=== PATIENT | female | born 1940 | race Hispanic/Latino ===

== ENCOUNTER 2017-12-13 14:31 | Observation (INO) | payer MEDICARE ==
[2017-12-13 15:23] LABS: #Eosinphils 0.1 thou/uL (0.0-0.7); #Monocytes 0.5 thou/uL (0.11-0.59); #Neutrophils 8.7 thou/uL (1.40-6.50); %Basophils 0.4 % (0.0-1.0); %Eosinophils 0.7 % (0.0-10.0); %Lymphocytes 9.6 % (21.0-51.0); %Monocytes 5.2 % (0.0-10.0); %Neutrophils 84.1 % (42.0-75.0); Hemoglobin 10.8 g/dL (12.0-16.0); Mean Corpuscular HGB CONC 32.4 g/dL (32.0-36.0); Mean Corpuscular Hemoglobin 32.3 pg (27.0-31.0); Mean Corpuscular Volume 99.7 fL (78.0-98.0); Mean Platelet Volume 9.2 fL (7.4-10.4); Platelet Count 88 thou/uL (130-400); RBC Distribution Width 13.4 % (11.5-14.5); Red Blood Cell (RBC) Count 3.34 mill/uL (4.20-5.40); White Blood Cell (WBC) Count 10.3 thou/uL (4.8-10.8)
--- NOTE | 2017-12-13 15:32 | RAD ---
CHEST ONE VIEW: History: Cough. Comparison: None. FINDINGS: Heart size is enlarged. Mild pulmonary venous congestion. No pneumothorax. No acute osseous abnormality. IMPRESSION: 1. Cardiomegaly and mild pulmonary venous congestion. 2. Findings suggesting old left sided rib fracture. POS: [facility]
[2017-12-13 15:34] LABS: Burr Cells SLIGHT = 2-5 cells (100X) (0-1/hpf); MDiff Complete? YES; Ovalocytes SLIGHT = 2-5 cells (100X) (0-1/hpf); PLT Morphology Comment Appears Decreased; Tear Drops SLIGHT = 2-5 cells (100X) (0-1/hpf)
[2017-12-13 15:38] LABS: ALT (SGPT) 77 U/L (8-55); AST (SGOT) 78 U/L (5-34); Albumin 3.8 g/dL (3.4-4.8); Alkaline Phosphatase 182 U/L (40-150); Anion Gap 18 mmol/L (10-20); BUN (Urea Nitrogen) 46 mg/dL (9.8-20.1); CK (CPK) 186 U/L (29-168); Calc. Creatinine Clearance 0 mL/min (70-130); Calcium 7.8 mg/dL (7.8-10.44); Carbon Dioxide 25 mmol/L (23-31); Chloride 96 mmol/L (98-107); Estimated GFR-MDRD 6; Glucose 118 mg/dL (83-110); Lipase 42 U/L (8-78); Magnesium 1.9 mg/dL (1.6-2.6); Phosphorus 3.4 mg/dL (2.3-4.7); Potassium 3.9 mmol/L (3.5-5.1); Protein, Total 6.8 g/dL (6.0-8.3); Sodium 135 mmol/L (136-145)
[2017-12-13 15:38] LABS: CKMB 3.1 ng/mL (0-6.6); Troponin I 0.246 ng/mL (< 0.028)
[2017-12-13] MEDS ORDERED: Nitroglycerin 2% Ointment 1 INCH/1 GM Packet ONE (16:24)
[2017-12-13] MEDS ORDERED: Ondansetron HCl/PF 4 MG/2 ML Vial IVP PRN (18:31)
[2017-12-13] MEDS ORDERED: Ondansetron ODT 4 MG TAB SL PRN (18:31)
[2017-12-13 18:56] LABS: Troponin I 0.242 ng/mL (< 0.028)
[2017-12-13] MEDS ORDERED: hydrALAZINE 20 MG/ML VIAL SLOW IVP PRN (21:44)
[2017-12-13] MEDS ORDERED: cloNIDine 0.1 MG TAB PO PRN (21:45)
[2017-12-13] MEDS ORDERED: Labetalol HCl 100 MG/20 ML VIAL SLOW IVP PRN (21:45)
[2017-12-13 21:47] LABS: Troponin I 0.221 ng/mL (< 0.028)
--- NOTE | 2017-12-13 23:30 | CT ---
CT ABDOMEN WITHOUT CONTRAST PELVIC CT WITHOUT CONTRAST 12/13/17 HISTORY: Vomiting. Cough. Shortness of breath. Pain. COMPARISON: None. TECHNIQUE: CT abdomen and pelvis are performed without contrast. Coronal reformatted images are submitted for in terpretation. FINDINGS: This examination is on the anomalies list and is being interpreted at 10:53 p.m. There is evidence of diffuse anasarca/edema. Pockets incompletely well defined fluid are noted in the anterior abdominal wall, along the midline measuring 5.0 x 2.3 cm. Additional fluid is noted along t he left breast, incompletely evaluated. The heart is enlarged. There is a small right and a trace lef t side pleural effusion. Adjacent consolidation may be due to pneumonia or atelectasis. Small amount of pericardial fluid is noted. The visualized aorta demonstrates atherosclerosis. No evidence of aneu rysm. Gallbladder is unremarkable. Limited evaluation of the solid organs by the lack of IV contrast. There is a hypodensity involving t he left hepatic lobe, measuring 2.1 x 1.7 cm with an attenuation coefficient of negative 2 Hounsfield units suggesting a cyst. There is perihepatic and perisplenic fluid. Grossly, the solid organs are u nremarkable. There is atrophy of both kidneys. No definite obstructive uropathy. There is no mesenteric mass, lymphadenopathy or free air. There is free fluid involving both pericoli c gutters and patchy fluid in the lower abdomen. Limited evaluation of the alimentary canal due to lack of oral contrast. No definite small bowel obst ruction. Ileocecal junction is normal. Appendix is difficult to appreciate. No obvious inflammation o f the cecal apex. There is diverticulosis in the sigmoid colon. No obvious diverticulitis. Evaluation of the colonic mucosa is limited. PELVIC CT: Urinary bladder is decompressed. There is free fluid in the pelvis. No mass, lymphadenopathy or free air. The pelvic free fluid is slightly complex. No lytic or blastic lesions in the osseous structures. IMPRESSION: 1. Cardiomegaly. 2. Free fluid in the abdomen and pelvis. Anasarca and pockets of fluid in the soft tissues as de scribed above. Findings may be secondary to congestive heart failure/volume overload. Other etiologie s cannot be excluded. 3. No evidence of a high grade bowel obstruction. 4. Diverticulosis. No definite diverticulitis. Colonoscopy if clinically warranted. POS: [facility]
[2017-12-14] MEDS ORDERED: Nitroglycerin 0.4 MG TAB (25 Tab Bottle) PO PRN (02:11)
[2017-12-14] MEDS ORDERED: Calcium Carbonate 500 MG ChewTAB PO PRN (02:12)
[2017-12-14] MEDS ORDERED: Ondansetron ODT 4 MG TAB PO PRN (02:12)
[2017-12-14] MEDS ORDERED: Ondansetron HCl/PF 4 MG/2 ML Vial IVP PRN (02:12)
[2017-12-14] MEDS ORDERED: Senokot 8.6 MG TAB PO PRN (02:12)
[2017-12-14 05:02] LABS: INR-International Normal Ratio 1.3; PTT 65.6 SEC (22.9-36.1)
[2017-12-14 05:03] LABS: #Eosinphils 0.1 thou/uL (0.0-0.7); #Lymphocytes 0.6 thou/uL (1.20-3.40); #Monocytes 0.5 thou/uL (0.11-0.59); #Neutrophils 5.3 thou/uL (1.40-6.50); %Basophils 0.2 % (0.0-1.0); %Eosinophils 2.1 % (0.0-10.0); %Lymphocytes 9.7 % (21.0-51.0); %Monocytes 7.9 % (0.0-10.0); %Neutrophils 80.1 % (42.0-75.0); Hemoglobin 10.3 g/dL (12.0-16.0); Mean Corpuscular HGB CONC 32.8 g/dL (32.0-36.0); Mean Corpuscular Hemoglobin 32.1 pg (27.0-31.0); Mean Platelet Volume 9.8 fL (7.4-10.4); Platelet Count 74 thou/uL (130-400); RBC Distribution Width 13.2 % (11.5-14.5); White Blood Cell (WBC) Count 6.6 thou/uL (4.8-10.8)
[2017-12-14 05:14] LABS: ALT (SGPT) 64 U/L (8-55); AST (SGOT) 57 U/L (5-34); Albumin 3.7 g/dL (3.4-4.8); Alkaline Phosphatase 170 U/L (40-150); Anion Gap 16 mmol/L (10-20); BUN (Urea Nitrogen) 51 mg/dL (9.8-20.1); BUN/Creatinine Ratio 7.22; Bilirubin, Direct 1.7 mg/dL (0.1-0.3); Bilirubin, Total 2.4 mg/dL (0.2-1.2); Calc. Creatinine Clearance 9 mL/min (70-130); Calcium 8.1 mg/dL (7.8-10.44); Carbon Dioxide 28 mmol/L (23-31); Chloride 94 mmol/L (98-107); Estimated GFR-MDRD 6; Glucose 114 mg/dL (83-110); Phosphorus 4.1 mg/dL (2.3-4.7); Potassium 4.1 mmol/L (3.5-5.1); Sodium 134 mmol/L (136-145)
[2017-12-14] MEDS: cloNIDine 0.3 MG TAB PO SCH ×2 (06:54→13:21)
[2017-12-14] MEDS: Calcium Acetate 667 MG CAP PO SCH ×2 (07:59→13:21)
--- NOTE | 2017-12-14 08:36 | ULT ---
GALLBLADDER ULTRASOUND: Date: 12/14/17 INDICATION: Abnormal liver function tests. FINDINGS: Images of the gallbladder show thickened wall and pericholecystic fluid. No gallstones identified. Te chnologist describes a negative Mahmood's sign. Common bile duct is mildly prominent, measured at 7.0 mm. The liver is mildly enlarged, measuring up to 22.0 cm. Small amount of free fluid is seen around the liver margin. The right kidney appears unremarkable. The pancreas is obscured. IMPRESSION: 1. Gallbladder wall is thickened and there is pericholecystic fluid identified by ultrasound. No def inite gallstones seen. 2. Mild ascites. 3. Common bile duct is upper normal caliber. POS: [facility]
[2017-12-14] MEDS ORDERED: Furosemide 20 MG TAB PO SCH (09:00)
[2017-12-14] MEDS ORDERED: NIFEdipine XL 30 MG TAB PO SCH (09:00)
[2017-12-14] MEDS ORDERED: Aspirin 81 mg Enteric Coated Tablet PO SCH (09:00)
[2017-12-14] MEDS ORDERED: Minoxidil 2.5 MG TAB PO SCH (09:00)
[2017-12-14] MEDS ORDERED: Carvedilol 6.25 MG TAB PO SCH (09:00)
--- NOTE | 2017-12-14 09:00 | HP ---
DATE OF ADMISSION: 12/13/2017 The patient was seen and examined on 12/13/2017. PRIMARY CARE PHYSICIAN: The patient is unable to recall the name of her PCP. PRIMARY LEAD PHP DEVELOPER: The patient is unable to recall. CHIEF COMPLAINT: Generalized pain with shortness of breath and nausea. Please note that the patient is a poor historian and not much information is available from the patie nt. The patient primarily speaks Hungarian. HISTORY OF PRESENT ILLNESS: The patient is a 77-year-old female with hypertension; hyperlipidemia; e nd-stage renal disease, on hemodialysis Sunday, Sunday, Sunday; COPD; presented to the emergency r o with above complaints. The patient is new to [facility]. She has never been her e before. Over the last three days, the patient has generalized pain along with some nausea and vomiting. She had some coughing along with shortness of breath as well. She reports subjective fever yesterday. S he underwent dialysis on the day of admission; however, she was unable to complete it because of the pain. She also had some chest pain radiating to her neck. Her chest pain was moderate in intensity without any aggravating or relieving factor. Her shortness of breath was worse on exertion. In the emergency room, initial vital signs showed temperature 98.9, respiration 19, pulse rate of 72 with blood pressure 175/75 with O2 saturation 88% on room air. O2 saturation improved with O2 supple mentation. Chest x-ray showed pulmonary vascular congestion. A CT scan of the abdomen and pelvis wi thout contrast showed free fluid in the abdomen and pelvis, which may be secondary to congestive hear t failure. She received aspirin and 1 inch nitropatch was placed. PAST MEDICAL HISTORY: 1. Hypertension 2. Hyperlipidemia. 3. End-stage renal disease, on hemodialysis Sunday, Sunday, Sunday. 4. Chronic obstructive pulmonary disease. 5. Anxiety and depression. 6. Osteoporosis. PAST SURGICAL HISTORY: 1. Dialysis access. 2. Bladder sling. 3. section. ALLERGIES: No known drug allergies. CURRENT HOME MEDICATIONS: Tylenol, Lipitor, Bumex, calcium acetate, carvedilol 12.5 b.i.d., clonidin e 0.3 mg 3 times a day, Lasix 20 mg daily, minoxidil 10 mg daily, Procardia-XL 30 mg daily, Zoloft 50 mg daily, temazepam 15 mg at bedtime. SOCIAL HISTORY: The patient currently lives at home with her family, makes her own decision with the help of her family. She is FULL CODE. No current use of smoking, alcohol or drug use. FAMILY HISTORY: Positive for heart disease. REVIEW OF SYSTEMS: The following complete review of systems was negative, unless otherwise mentioned in the HPI or below: Constitutional: Weight loss or gain, ability to conduct usual activities. Sk in: Rash, itching. Eyes: Double vision, pain. ENT/Mouth: Nose bleeding, neck stiffness, pain, te nderness. Cardiovascular: Palpitations, dyspnea on exertion, orthopnea. Respiratory: Shortness of breath, wheezing, cough, hemoptysis, fever or night sweats. Gastrointestinal: Poor appetite, abdom inal pain, heartburn, nausea, vomiting, constipation, or diarrhea. Genitourinary: Urgency, frequenc y, dysuria, nocturia. Musculoskeletal: Pain, swelling. Neurologic/Psychiatric: Anxiety, depressio n. Allergy/Immunologic: Skin rash, bleeding tendency. PHYSICAL EXAMINATION: VITAL SIGNS: As discussed above. GENERAL: A 77-year-old female, in no significant respiratory distress, able to complete short phrase s. HEENT: Head atraumatic, normocephalic. Sclerae are anicteric. Moist mucous membrane. No oral lesi on. NECK: Supple. No significant JVD elevation noted. HEART: S1, S2 present. Regular rate and rhythm. No rubs or gallops appreciated. LUNGS: Showed diminished air entry at bilateral bases with bibasilar rales. No significant rhonchi or wheezing noted. ABDOMEN: Soft. Bowel sounds present. EXTREMITIES: 1+ edema in bilateral lower extremities. No calf tenderness. Good thrill over the lef t arm dialysis access. SKIN: Warm and dry. NEUROLOGIC: Grossly nonfocal, moves all four extremities. PSYCHIATRY: Alert, awake, and oriented x3. LABORATORY AND X-RAY FINDINGS: CBC showed WBC 10.3 with hemoglobin 10.8, platelet of 88. Chemistrie s showed sodium 135, potassium 3.9, chloride 96, bicarbonate 25, BUN 46, creatinine 6.38. Troponin o f 0.246. Total bilirubin 3.0, AST 78, ALT 77, alkaline phosphatase 182. Chest x-ray by my review sh owed pulmonary vascular congestion with old left-sided rib fracture. EKG by my review showed sinus r hythm without significant ST-T wave changes. IMPRESSION: 1. Acute hypoxic respiratory failure secondary to volume overload, rule out congestive heart failure . 2. End-stage renal disease on hemodialysis. 3. Chronic anemia, probably secondary to renal insufficiency. 4. Obesity with a BMI of 34.8. 5. Abnormal liver function tests of unclear etiology. Possibilities include passive hepatic congest ion versus nonalcoholic steatohepatitis. 6. Elevated troponins, probably secondary to volume overload. 7. Hyponatremia. 8. Thrombocytopenia of unclear etiology. 9. Questionable chronic liver disease. 10. Hypertension. 11. Hyperlipidemia. 12. Chronic obstructive pulmonary disease. 13. Anxiety and depression. 14. Osteoporosis. PLAN: The patient will be monitored in the telemetry unit. Echocardiogram will be obtained. Due to abnormal liver function tests, right upper quadrant ultrasound will be done as well. There was some questionable hypodensity on the left hepatic lobe on the CT. We will consult Nephrology for dialysi s. We will keep her on fluid restriction. We will resume selected home medications. We will monito r platelet count. We will avoid heparin due to low platelets. We will add nebulizer treatment as ne eded. Plan of care was discussed with the patient in detail. She stated understanding.
[2017-12-14 12:08] VITALS: TEMP 97.8
--- NOTE | 2017-12-14 12:21 | CON ---
DATE OF CONSULTATION: 12/14/2017 HISTORY OF PRESENT ILLNESS: Ms. Manzano is a 77-year-old female from [facility] and curre ntly visiting [place]. Please note this patient has ESRD on maintenance hemodialysis. During dialys is yesterday she complained of nonspecific abdominal discomfort. She was sent to the ER for further evaluation. She is now evaluated due to some transient chest pain. We are being consulted for her m aintenance hemodialysis. REVIEW OF SYSTEMS: Positive for abdominal pain and transient chest pain, denies any shortness of romi ath, no syncopal episode, no productive cough, no fever or chills, no diarrhea or constipation. Appe tite and energy level is fair. No syncopal episode, no gross hematuria, no dysuria. MEDICATIONS: Currently on PhosLo 667 mg p.o. t.i.d. with meals, Ecotrin 81 mg every day, DuoNeb q.6 hours as directed, calcium carbonate 1000 mg q.4 hours p.r.n., Coreg 12.5 mg p.o. b.i.d., Catapres 0. 3 mg t.i.d., furosemide 20 mg once a day, Normodyne p.r.n., minoxidil 5 mg p.o. b.i.d., nifedipine 30 mg q.a.m., Nitrostat p.r.n., Zofran p.r.n., Zoloft 50 mg q.a.m. PAST MEDICAL HISTORY: 1. History of ESRD. 2. Longstanding hypertension. 3. Depression. 4. Hyperlipidemia. 5. Chronic obstructive pulmonary disease. 6. Anxiety. 7. Osteoporosis. PAST SURGICAL HISTORY: 1. Status post cuffed hemodialysis catheter placement. 2. Status post AV fistula placement. SOCIAL HISTORY: The patient currently is visiting her daughter in [place]. She is single. She live s in [facility]. Currently no smoking, no alcohol. Sedentary lifestyle. ALLERGIES: Unknown. TRAUMA: None. IMMUNIZATIONS: Up to date. HOSPITALIZATIONS: Please see past medical history. PHYSICAL EXAMINATION: VITAL SIGNS: Blood pressure is 176/71, heart rate 62, respiratory rate 20, temperature 97.3, pulse o x 92%. GENERAL: Awake, alert, supine, comfortable, not in overt distress. SKIN: Adequate turgor. HEENT: She has pinkish conjunctivae, anicteric sclerae. NECK: No neck mass, no carotid bruits, no JVD. CHEST: No deformities. LUNGS: Clear breath sounds, no wheezing, no crackles. HEART: Normal sinus rhythm. No murmur, no gallops or rubs. ABDOMEN: Globular, soft, nontender, no masses. EXTREMITIES: No edema. LABORATORY: 12/14/2017 - White count 6.6, hemoglobin 10.3. Sodium 134, potassium 4.1, chloride 94, carbon dioxide 28, BUN 51, creatinine 7.06, glucose 114, calcium 8.1, phosphorus 4.1, AST 57, ALT 64, albumin 3.7. Chest x-ray of 12/13/2017 shows increased lung markings. CT scan of the abdomen and pelvis shows no acute intra-abdominal pathology. Ultrasound of the abdome n; thickened gallbladder, but no stones noted. ASSESSMENT AND PLAN: 1. Abdominal pain - continue supportive care. Ultrasound showed thickened gallbladder, but no stone s were noted. If this is persistent, we may need to consider HIDA scan to rule out acalculous cholec ystitis. 2. End-stage renal disease, stable. We will continue current hemodialysis regimen. Max out fluid r emoval as tolerated due to the finding on chest x-ray of congestive heart failure. Overall, prognosis remains guarded. Thank you for the consult. ADDENDUM: The patient is a visitor at the [place] dialysis unit. She dialyzes in [facility].
[2017-12-14 14:34] VITALS: BMI 34.9
[2017-12-14 18:07] VITALS: BP 144/60
--- NOTE | 2017-12-14 18:08 | DIS ---
DATE OF ADMISSION: 12/13/2017 DATE OF DISCHARGE: 12/14/2017 PRIMARY CARE PHYSICIAN: Out of town. CURRENT TOOLING SUPERVISOR: Locally is Dr. Graham Alonzo. DISCHARGE DIAGNOSES: 1. Fluid overload secondary to lack of hemodialysis. 2. End-stage renal disease requiring hemodialysis. 3. Elevated liver function tests due to passive congestion. 4. Elevated troponin secondary to end-stage renal disease. 5. Chronic thrombocytopenia. 6. Metabolic bone disease. 7. Anemia of renal disease. CONSULTATIONS: Dr. Graham Alonzo with Nephrology. PROCEDURES: Hemodialysis. HISTORY AND PHYSICAL: Ms. Ferrer is a 77-year-old female who is visiting family from [facility]. S he developed shortness of breath and fluid overload. She apparently dialysis yesterday, but wa s unable to do any due to lower extremity cramps and came to the emergency department. She was placed on our service overnight. HOSPITAL COURSE: The patient was seen and examined by Dr. Zacarias Strauss and placed in observation stat us. Overnight, the patient did well and subsequently went to hemodialysis this afternoon. She completed hemodialysis with breathing better and was cleared for discharge by Dr. Alonzo per outpati ent followup. PHYSICAL EXAMINATION: The patient was seen and examined on the day of discharge. Discharge plan and disposition discussed with the patient [id number] at bedside. DISCHARGE MEDICATIONS: 1. Tylenol 1000 mg p.o. q.6 hours p.r.n. 2. Lipitor 40 mg p.o. at bedtime. 3. Bumex 2 mg daily. 4. PhosLo 667 mg p.o. t.i.d. 5. Coreg 12.5 mg p.o. b.i.d. 6. Clonidine 0.3 mg p.o. t.i.d. 7. Lasix 20 mg daily. 8. Minoxidil 10 mg daily. 9. Nifedipine ER 30 mg p.o. q.a.m. 10. Zoloft 50 mg p.o. q.a.m. 11. Temazepam 50 mg p.o. at bedtime. FOLLOWUP APPOINTMENTS: 1. Primary care physician in a week. 2. Dr. Alonzo as needed. DISCHARGE CONDITION: Stable. DISPOSITION: Being discharged home via private vehicle. DISCHARGE ACTIVITY: Per cardiopulmonary limits. DISCHARGE DIET: Heart healthy, diabetic, recommended.
[2017-12-15] MEDS ORDERED: Bumetanide 1 MG TAB PO SCH (09:00)
[2017-12-15] MEDS ORDERED: BUMETANIDE 2 MG PO SCH (09:00)
== END 2017-12-14 18:25 | disposition home or self-care (01) ==
LOC: ERS 14:31 → 2SW 17:56
PROVIDERS: ADMIT Internal Medicine; ATTEND Internal Medicine
DX: E87.70 Fluid overload, unspecified (principal); J96.01 Acute respiratory failure with hypoxia; I12.0 Hypertensive chronic kidney disease with stage 5 chronic kidney disease or end stage renal disease; N18.6 End stage renal disease; D63.1 Anemia in chronic kidney disease; E66.9 Obesity, unspecified; E87.1 Hypo-osmolality and hyponatremia; D69.6 Thrombocytopenia, unspecified; E78.5 Hyperlipidemia, unspecified; J44.9 Chronic obstructive pulmonary disease, unspecified; F41.9 Anxiety disorder, unspecified; F32.9 Major depressive disorder, single episode, unspecified; M81.0 Age-related osteoporosis without current pathological fracture; Z68.34 Body mass index [BMI] 34.0-34.9, adult; Z79.899 Other long term (current) drug therapy
CPT/HCPCS: 71045; 74176; 76705; 80053; 80069; 80076; 82550; 82553; 83690; 83735; 84100; 84484 ×2; 85025 ×2; 85610; 85730; 93005; 93306; 94760; 99285; G0378; 36415; 90935; A4216; G0257